=== PATIENT | male | born 1960 | race Caucasian/White ===

== ENCOUNTER → 2022-07-01 09:17 | Outpatient (CLI) | payer OTHER, SELFPAY ==
--- NOTE | 2022-07-01 09:24 | DI.RAD.S_ITS ---
PROCEDURE: XR KNEE RT 1TO2V INDICATIONS: knee pain and hand stiffness TECHNIQUE: 2 views of the knee were acquired. COMPARISON: None. FINDINGS: Bones: Old healed proximal tibial and fibular shaft fractures are seen with chronic appearing deformity. Moderate tricompartmental osteoarthritis in right knee is noted with joint space narrowing, subchondral sclerosis and marginal osteophyte formation most notably in lateral femoral tibial compartment.. No suspicious bony lesions. Soft tissues: No joint effusion. No suspicious soft tissue calcifications. IMPRESSION: Old fractures involving proximal tibia and fibula. No acute fracture or dislocation. Moderate tricompartmental osteoarthritis most notably in lateral femoral tibial compartment. No significant joint effusion. Dictated by: Milton Ogden M.D. on 07/01/2022 at 10:21 Approved by: Milton Ogden M.D. on 07/01/2022 at 10:22
== END ==
PROVIDERS: PCP Family Medicine; Referring Provider Internal Medicine Cardiovascular Disease; Visit Provider Internal Medicine Cardiovascular Disease
DX: M17.11 Unilateral primary osteoarthritis, right knee (principal); M25.561 Pain in right knee; M25.641 Stiffness of right hand, not elsewhere classified
CPT/HCPCS: 73560

== ENCOUNTER → 2022-07-28 09:28 | Outpatient (CLI) | payer OTHER, SELFPAY ==
--- NOTE | 2022-07-28 | DI.RAD.S_ITS ---
PROCEDURE: XR HAND LT 2V INDICATIONS: Stiffness of unspecified hand, not elsewhere TECHNIQUE: 2 views of the hand(s) acquired. COMPARISON: [facility], CR, FINGER(S) MIN 2VW, 08/15/2014, 11:01. FINDINGS: Bones: No fractures or dislocations. Mild degenerative changes. Carpal bones are normally aligned. No suspicious bony lesions. Soft tissues: No suspicious soft tissue calcifications. IMPRESSION: Mild osteoarthritis. Dictated by: Raghavendra Cortez M.D. on 07/28/2022 at 11:59 Approved by: Raghavendra Cortez M.D. on 07/28/2022 at 12:02
--- NOTE | 2022-07-28 | DI.RAD.S_ITS ---
PROCEDURE: XR CHEST 2V INDICATIONS: Stiffness of unspecified hand, not elsewhere TECHNIQUE: 2 views of the chest were acquired. COMPARISON: None. FINDINGS: Surgical changes and devices: None. Lungs and pleura: Lungs are clear. No pleural effusions or pneumothorax. Mediastinum: Mediastinal contours are normal. Heart size is normal. Bones and chest wall: No suspicious bony abnormalities. Soft tissues appear unremarkable. IMPRESSION: No acute cardiopulmonary abnormality. Dictated by: Raghavendra Cortez M.D. on 07/28/2022 at 10:18 Approved by: Raghavendra Cortez M.D. on 07/28/2022 at 10:19
== END ==
LOC: RAD 09:30
PROVIDERS: PCP Family Medicine; Referring Provider Internal Medicine Cardiovascular Disease; Visit Provider Internal Medicine Cardiovascular Disease
DX: R07.9 Chest pain, unspecified (principal); M19.042 Primary osteoarthritis, left hand; M25.642 Stiffness of left hand, not elsewhere classified
CPT/HCPCS: 71046; 73120